=== PATIENT | female | born 1970 | race Caucasian/White ===

== ENCOUNTER 2019-09-13 08:51 | Day surgery (SDC) | payer BC, SELFPAY ==
[2019-09-13] VITALS (7 sets, daily range): BP systolic 108–129; BP diastolic 58–76; PULSE 92–109; RESP 16–95; TEMP 36.6–37; O2SAT 95–97; BMI 32.1
[2019-09-13 09:18] LABS: Internal QC Validated? YES +Cl - CLEAR BKGD; Pregnancy, Urine Negative Negative
[2019-09-13] MEDS: Lactated Ringers 1,000 ML 100 ML IV (09:34)
[2019-09-13] MEDS: Ciprofloxacin 0.3% 2.5ml Bottle 1 DRP (10:32)
--- NOTE | 2019-09-13 10:36 | DCINST_ITS ---
Discharge Diet: No Restrictions Discharge Activity: Return to Normal Activity Additional Activity Instructions:: Keep ears dry. Allergies/Adverse Reactions: Allergies prednisone Adverse Reaction (Verified 09/13/19 09:08) Other Restlessness Medications to take at Discharge Cetirizine HCl [Zyrtec] 10 mg PO QHS 09/11/19 Multivitamin [Multivitamins] 1 ea PO 09/11/19 Triamcinolone Acetonide [Nasacort] 1 spray NS DAILY 09/11/19 Primary Care Physician: Andrae Person MD [Primary Care Provider] - Test Results: Test results from this visit will be discussed in further detail at your follow- up appointment, if applicable. Please Follow Up With: Casey Maxwell MD - [phone] When: 1-2 weeks.
--- NOTE | 2019-09-13 11:13 | OP.PCM_ITS ---
Report of Operation Date of Procedure: 09/13/19 Pre-Operative Diagnosis: Chronic eustachian tube dysfunction with serous otitis media, right ear Post-Operative Diagnosis: Same Surgery/Procedure Performed:: Right myringotomy with placement of the T-type tympanostomy tube Type of Anesthesia:: General Anesthesiologist: Brando Kelsey CRNA Description of Procedure: The patient was transported to the operating room and remained on the long term care social worker cart in the supine position. After the administration of adequate general mask anesthesia the right ear was examined with the microscope. A previously placed Bravo tube was removed from the canal. Obvious serous effusion had returned. A myringotomy was created in the anterior inferior aspect and very thin watery fluid was evacuated. Some ciprofloxacin drops were rinsed through the middle ear and suctioned clear; thereafter a T-type tube was placed uneventfully and the procedure completed. Patient tolerated the procedure well, did not sustain any intraoperative anesthetic or surgical complication, was taken to the PACU where she was noted to be in satisfactory condition. Casey Maxwell MD
== END 2019-09-13 11:43 | disposition home or self-care (01) ==
LOC: SDC 08:52 → AC 08:55
PROVIDERS: Anesthesiology; Family Provider Family Medicine; PCP Family Medicine; Referring Provider Otolaryngology Otolaryngology/Facial Plastic Surgery; Visit Provider Otolaryngology Otolaryngology/Facial Plastic Surgery
PROC: (CPT 69436; principal; 2019-09-13 10:15)
DX: H65.21 Chronic serous otitis media, right ear (principal); H69.83 Other specified disorders of Eustachian tube, bilateral
CPT/HCPCS: 69436; 81025; J7120

== ENCOUNTER 2019-10-28 07:30 | Emergency (ER) | payer BC, SELFPAY ==
[2019-09-13 09:09] VITALS: BMI 32.1
[2019-10-28 07:31] VITALS: BP 127/79; PULSE 97; RESP 18; TEMP 36.6; O2SAT 98; BMI 31.8
--- NOTE | 2019-10-28 08:36 | ED.VIS.GEN ---
History of Present Illness Chief Complaint: Ear Problem Informant: Patient Onset: Today Narrative: Patient is a 49-year-old female with history of tympanostomy tube on the right presenting with blood from her right ear. Patient states that she was placed 1/[address] Oakes. She states he did not have any bleeding when it was initially placed. Around 3 AM she woke up with drainage from her ear. She checked to clean it out and saw that it was blood. Patient was very concerned that the to my to became dislodged. There is no urgent care is open so she came to the emergency room to have her tube checked. Patient denies any associated pain. She states is otherwise been feeling well. Denies any fever or chills. Denies any history of any bleeding disorders. Past Medical History - Allergies and Home Meds Allergies/Adverse Reactions: Allergies prednisone Adverse Reaction (Verified 10/28/19 07:33) Other Restlessness Primary Care Physician: Andrae Person MD [Primary Care Provider] - Past Medical History: None Surgical History: - - Left ear tube Lives: Spouse/ Significant Other Smoking Status: Never smoker Review of Systems General: Denies: Chills, Fever, Sweats ENT: Reports: - - Blood draining from right ear. Denies: Bilateral ear pain, Rhinorrhea, Sore throat Cardiovascular: Denies: Chest pain, Palpitations Respiratory: Denies: Dyspnea, Cough, Dyspnea on exertion Gastrointestinal: Denies: Nausea, Vomiting Musculoskeletal: Denies: Back pain, Extremity Pain Skin: Denies: Rash, Wounds Neurological: Denies: Headache, Weakness, Numbness Physical Exam Vital Signs/Narrative: Vital Signs Temp Pulse Resp BP Pulse Ox 10/28/19 07:31 98 F 97 18 127/79 H 98 Inital Vital Signs reviewed: Yes General: Well nourished, Well developed, No Acute Distress Head: Normocephalic, Atraumatic Eyes: Perrl, EOMI ENT: Moist mucous membranes, No rhinorrhea, - - Normal left tympanic membrane, right tympanic membrane has a tympanostomy tube in place. There is a small amount of red blood layered at the bottom of the TM and in the ear canal. No purulence is noted. No signs of trauma. No obvious source of the blood.. Negative for: Nasal congestion, Sinus tenderness Neck: Supple, Nontender Cardiovascular: Regular rate, Regular rhythm Respiratory: No distress Back: Nontender, Normal Inspection Extremities: Nontender, No edema Skin: Normal color, No rash Neurological: Alert, Oriented x3, Cranial nerves II-XII grossly intact, Normal Strength, Normal Sensation Psychological: Normal affect, Normal Mood Diagnostic/Tx/Re-eval - Medical Decision Making Patient has a small amount of bleeding through her right tympanostomy tube. She appears nontoxic in no acute distress. She does not have signs of infection. I think she is stable for outpatient follow-up. She will call ENT tomorrow. Patient states she just wanted reassurance. Patient is counseled on signs and symptoms requiring return to the emergency room. Patient verbalizes agreement and understand this plan. Patient discharged home in stable and improved condition. ED Disposition - Plan for ED Patient: Disposition: Home or Assisted Living Diagnosis: Bleeding from right ear Referrals: Andrae Person MD [Primary Care Provider] - Additional Instructions: I am not exactly sure why you are bleeding from your ear however you do not have any signs of infection. Your tube appears to be in good position and is not dislodged. Please call your ENT doctor tomorrow. Return if you have worsening symptoms.
== END 2019-10-28 09:00 | disposition home or self-care (01) ==
PROVIDERS: Emergency Provider Emergency Medicine; Family Provider Family Medicine; PCP Family Medicine
DX: H92.21 Otorrhagia, right ear (principal); Z96.22 Myringotomy tube(s) status
CPT/HCPCS: 99282